=== PATIENT | female | born 1990 ===

== ENCOUNTER → 2020-01-25 12:52 | Outpatient (ROUT) | payer OTHER, SELFPAY | PROVIDERS: Visit Provider Nurse Practitioner Obstetrics & Gynecology | DX: Z36.85 Encounter for antenatal screening for Streptococcus B (principal) | CPT/HCPCS: 87081 ==

== ENCOUNTER 2020-02-18 07:46 | Inpatient (IN) | payer OTHER, SELFPAY ==
--- NOTE | 2020-02-18 07:53 | P.HPOB_ITS ---
OB HPI Date/Time Date of admission: 02/18/20 Date Patient Seen: 02/18/20 Time Patient Seen: 07:50 History of Present Condition Chief complaint: Observation of : 1 Para: 0 Estimated Date of Delivery: 02/25/20 Estimated Gestational Age (weeks): 39 Narrative: Claudette Mccoy is a 30 year old female @ 39 wks by 10 wk US who presents for elective IOL. 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 Anxiety has worsened closer to term along w/ worsening pandemic. Uncomplicated PN care. Received flu vaccine, Tdap vaccine and Rhogam appropriately timed in . Burger balloon placed in clinic 02/17/20 @ 1730, came out at 2300. Lots of FM. Small spotting. No LOF. and director of sustainability programs present and supportive. Planning IV narcotics and then epidural. Indications Indication for induction OB: maternal distance History of Present care: good care Dating criteria: based on 1st trimester US only Ultrasounds: normal 1st trimester US and normal mid trimester US Obstetrical complications: none Medical complications: psychiatric Narrative: Chronic anxiety, stable on sertraline, buspirone and clonazipam Preadmission Labs Blood type: 0 (-) negative -: Antibody screen: negative, GBS status: negative, HBsAG: negative, HIV: negative and RPR/VDLR: negative -: Chlamydia screen: not detected and Gonorrhea screen: not detected -: Rubella: immune HCAB: negative PAP: Normal Cell-free DNA: negative, female 3 hr GTT: 1 hr (169) and 2 hr (116) Fasting blood glucose: 88 Narrative: MsAFP-negative Evaluation Evaluation Baseline heart rate: 130 Variability: Moderate (11-25) monitor accelerations: Present monitor decelerations: Absent Uterine Contraction Intensity: Mild Category of Tracing: I PFSH Medical History (Updated 02/18/20 @ 08:09 by Stefania Nowak CNM) Depression (Acute) Endometriosis determined by laparoscopy (Acute) Family History (Updated 02/18/20 @ 08:09 by Stefania Nowak CNM) Father Hypertension Diabetes mellitus Depression Thyroid disorder Social History (Updated 02/18/20 @ 08:10 by Stefania Nowak CNM) marital status: household members: spouse lives independently: Yes pets and animals: Yes education level: college occupational status: employed Smoking Status: Never smoker alcohol intake: former substance use type: does not use Review of Systems Review of Systems ROS: Yes All systems reviewed with the patient and are negative except as otherwise documented Exam Vital Signs (past 8 hours): BP 115/77, HR105, T36.7C Temporal Resp Effort & Inspection: normal respiratory effort Auscultation: clear to auscultation bilaterally Cardio Rate: regular rate Rhythm: regular rhythm Heart Sounds: S1 normal and S2 normal Manual OB Exam: dilated 4, effaced 75%, station -2 and other (soft, posterior) Presentation: vertex Estimated Weight (lbs): 7 Objective Labs Result Diagrams: 02/18/20 08:00 Assessment and Plan Assessment and Plan Assessment and Plan narrative: Admit, routine orders w/ CBC, T&S, then pitocin. Labor support, PRN. notified of patient status and plan of care. Reassess in 4-6 hurs or sooner, PRN.
[2020-02-18 08:15] LABS: Add Manual Diff / Slide Review NO; Basophils Absolute Auto 100 /uL (0-100); Basophils Percent Auto 0.4 % (0-2); Eosinophils Absolute Auto 100 /uL (0-450); Eosinophils Percent Auto 0.5 % (2-4); Hematocrit 35.3 % (36-46); Hemoglobin 11.9 g/dL (12.0-16.0); Lymphocytes Absolute Auto 1700 /uL (1100-4500); Mean Corpuscular HGB Conc 33.7 % (30-36); Mean Corpuscular Hemoglobin 31.4 PG (26-34); Mean Corpuscular Volume 92.9 fL (80-100); Monocytes Absolute Auto 1000 /uL (0-900); Monocytes Percent Auto 6.2 % (3-14); Neutrophils Absolute Auto 12600 /uL (1500-7000); Neutrophils Percent Auto 81.9 % (50-75); Platelet Count 199 X10^3/uL (150-400); Red Cell Distribution Width 15.3 % (11.6-14.8); White Blood Cell Count 15.4 X10^3/uL (4.5-11.0)
[2020-02-18] MEDS: OXYTOCIN PREMIX 30 UNIT/500 ML PLAST..BAG IV (08:58)
[2020-02-18] MEDS: LACTATED RINGERS 1,000 ML 100 ML IV (08:58)
--- NOTE | 2020-02-18 13:14 | PM.OBPNLAB ---
Date/Time Date Patient Seen: 02/18/20 Time Patient Seen: 01:30 Pain Control Pain control: tolerating well Comments: Feeling mild to moderate, regular contractions. Not yet breathing through them. Thinks her water broke @ 1030 and has continued to leak scant amounts of clear fluid. VS: BP 103/58, HR97, T36.7C Temporal Pelvic Exam Dilation (cm): 4 Effacement (%): 75 station: -2 Amniotic membrane status: Leaking Comments: CE deferred/assumed same as on admission, as patient is not yet uncomfortable. Contractions Contractions on admission: none Monitor mode: External Pitocin rate (mU/min): 8 Contraction frequency (min): 2 Contraction duration (min): 1 Contraction pattern: Regular Contraction intensity: Mild Status status: Category l Heart Rate Baseline: 145 Monitor Accelerations: Present Monitor Decelerations: Absent Monitor Variability: Moderate Assessment and Plan Assessment: induction ongoing Plan: continuous present management Comments: Reassess in 4-6 hours or sooner, PRN. Labor support PRN. Recommend tub, then IV narcotic, then epidural, if desired. Encouraged every 20-30 minute position changes. Repeat CE after 2 hours of strong contractions.
--- NOTE | 2020-02-18 17:50 | PM.OBPNLAB ---
Date/Time Date Patient Seen: 02/18/20 Time Patient Seen: 16:45 Pain Control Pain control: tolerating well Comments: occasionally breathing through contractions, still woodrow to walk and talk through them. Has continued to leak scant amounts of clear fluid. VS: BP 110/69, HR95, T35.6C Temporal, SpO2-98%, poor electronic evaluation of MHR w/ SpO2 and Blanca. Pelvic Exam Dilation (cm): 4 Effacement (%): 75 station: -2 Amniotic membrane status: Leaking Comments: posterior cervix, ROP position. Contractions Contractions on admission: none Monitor mode: External Pitocin rate (mU/min): 13 Contraction frequency (min): 2 Contraction duration (min): 60 Contraction pattern: Regular Contraction intensity: Moderate Status status: Category l Heart Rate Baseline: 135 Monitor Accelerations: Present Monitor Decelerations: Variable Monitor Variability: Moderate Comments: poor continuity of tracing. RN switching between Blanca and traditional EFM. Assessment and Plan Assessment: induction ongoing Plan: continuous present management Comments: Recommend Mile's circuit. Labor support PRN. Reassess in 4 hours or sooner, PRN. Will consider FSE if FHR remains difficult to trace, but FHR currently reassuring overall.
[2020-02-18 19:25] VITALS: BP 110/69
[2020-02-18] MEDS: fentaNYL 100 MCG/2 ML INJ IV ×2 (20:44→23:06)
[2020-02-18] MEDS: clonazePAM 0.5 MG TABLET PO (20:59)
[2020-02-18] MEDS: ONDANSETRON 4 MG/2 ML INJ IV (23:41)
--- NOTE | 2020-02-19 00:41 | PM.OBPNLAB ---
Date/Time Date Patient Seen: 02/19/20 Time Patient Seen: 00:30 Pain Control Pain control: epidural Comments: Pt felt a pop and a large gush of fluid at 2328 with immediate increase in intensity of contractions. Pt received IV Fentanyl, then epidural. Now comfortable after epidural placement. VS: 105/72, HR100, T36.3C Temporal Pelvic Exam Dilation (cm): 5 Effacement (%): 90 station: -2 Amniotic membrane status: Leaking Comments: Clear Contractions Date/Time contractions began: Tachysystole immediately after SROM w/ pitocin @ 14mu/min. Pitocin was decreased to 10mu/min, then turned off. After epidural was placed, pitocin was restarted at 3mu/min. Contractions on admission: none Monitor mode: External Pitocin rate (mU/min): 3 Contraction frequency (min): 2 Contraction pattern: Regular Contraction intensity: Moderate Status status: Category l Heart Rate Baseline: 135 Monitor Accelerations: Present Monitor Decelerations: Absent Monitor Variability: Moderate Assessment and Plan Assessment: active labor and induction ongoing Plan: continuous present management Comments: Continue pitocin titration to adequate contraction pattern. Reassess in 4 hours or sooner, PRN.
[2020-02-19] MEDS: CALCIUM CARBONATE 500 MG TAB 1000 MG PO (00:44)
[2020-02-19] MEDS: CITRIC ACID/SODIUM CITRATE 15 ML SOLUTION 30 ML PO (05:08)
--- NOTE | 2020-02-19 06:16 | PM.OBPRVD ---
 Events: Labor Induction (elective) and Meconium Stained Fluid Labor & Delivery Delivery date: 02/19/20 Intrapartal events: None Cervical ripening method: per Burger bulb protocol (done in office 02/17/20) Induction method: per pitocin protocol Delivery augmentation: pitocin Delivery monitor: external FHT and external uterine Route of delivery: L&D Laceration Description: Perineal - 1st Degree and Vaginal - 2nd Degree Delivery repair: chromic Estimated blood loss (mL): 160 Anesthesia type: Epidural Narrative: Pt was examined @ 0430 and found to be C/C/+1. Meconium stained amniotic fluid was noted and a second RN was called to standby for NRP at a moderate crown. Maternal pushing w/ coaching and encouragement led to steady descent of vertex/ NSVB of a viable baby girl in direct OA position w/ no NC and easy delivery of the shoulders. [place] was lifted to maternal abdomen by FOB and CNM. Remianing 30 units of pitocin in 500mL LR was started at 300mL/hr for AMSTL. After cessation of pulsation, the cord was double clamped by CNM and cut by patient. Gentle cord traction led to spontaneous, Schultze deliveyr of an apparently intact placenta, membranes and 3VC. Fundus immediately firm and bleeding minimal. Inspection revealed a 1st degree perineal laceration extending to a left sulcus laceration. Both repaired w/ 3.0 Chromic in the usual fashion, under adequate epidural anesthesia. Patient's clitoral piercing was removed prior to and replaced after the repair was complete. QBL 160mL. Both mother and baby stable and skin to skin as I left the room. [place] Baby 1: Infant gender: Female Presentation: vertex Placenta delivery description: Spontaneous cord vessel description: 3 Vessels score (1 min): 7 score (5 min): 8 Plan for aftercare: Routine PP orders. Anticipate d/c to home in 24-36 hours.
[2020-02-19] MEDS: KETOROLAC 30 MG/ML VIAL IV (06:42)
[2020-02-19] MEDS: SERTRALINE 50 MG TABLET 150 MG PO (08:21)
[2020-02-19] MEDS: PRENATAL VIT,CALC/IRON/FOLIC 1 TABLET 1 TAB PO (08:21)
[2020-02-19] MEDS: DOCUSATE 100 MG CAPSULE PO ×2 (08:24→19:42)
[2020-02-19] MEDS: DERMOPLAST SPRAY 20% 60 ML 1 SPRAY TOP (10:15)
[2020-02-19] MEDS: ACETAMINOPHEN 325 MG TABLET 650 MG PO ×3 (10:15→22:38)
[2020-02-19] MEDS: IBUPROFEN 600 MG TABLET PO ×2 (14:13→19:41)
[2020-02-19] MEDS: clonazePAM 0.5 MG TABLET PO (22:38)
[2020-02-20] MEDS: IBUPROFEN 600 MG TABLET PO ×2 (02:37→08:48)
[2020-02-20] MEDS: ACETAMINOPHEN 325 MG TABLET 650 MG PO (06:56)
--- NOTE | 2020-02-20 07:56 | P.DS_ITS ---
Discharge Providers Provider Date of admission: 02/18/20 07:46 Discharge Date: 02/20/20 Consults: 02/20/20 06:15 Consult to Credit Card Analyst Routine Comment: Discharge provider: Stefania Nowak CNM Summary Discharge Diagnosis (1) Second degree perineal laceration during delivery: Status: Acute Time Spent with Patient Time attestation: Total time spent providing and/or coordinating discharge ser vices: Objective Labs Result Diagrams: 02/18/20 08:00 Exam Vital Signs (past 8 hours): BP 116/72, HR92, RR16, T98.2F Temporal External Female Exam: external swelling Other: Fundus firm @ u-1, lochia-rubra, light, no clots Perineum well approximated Discharge Plan Discharge Plan Patient Disposition: Home Discharge orders & Medications Prescriptions: New oxycodone 5 mg Tablet 5 mg PO Q4HR PRN (Reason: Pain, Moderate (4-6)) 4 Days Qty: 6 RF: 0 ibuprofen 600 mg Tablet 600 mg PO Q6HR PRN (Reason: Pain, Mild (1-3)) 14 Days Qty: 60 RF: 2 acetaminophen 325 mg Tablet 650 mg PO Q6HR PRN (Reason: Pain, Mild (1-3)) 14 Days Qty: 60 RF: 2 Continued clonazepam 0.5 mg tablet 0.5 mg PO DAILY RF: 0 sertraline 100 mg tablet 150 mg PO DAILY RF: 0 cetirizine 10 mg Tablet 10 mg PO DAILY RF: 0 Follow up/Referrals: Stefania Nowak CNM [Advanced Vending Machine Technician] - (Follow up in 2 weeks and 6 week , as scheduled. You have appointment email confirmations.) Diet/Activity/Treatments Diet: Diet as Tolerated and Regular Activity: pelvic rest x 6 weeks Skin/Wound/Dressing Care Report to your healthcare provider any signs of infection, such as:: chills, fever, increased pain and unusual redness Visit Report/Discharge Packet Instructions: DI for Depression
[2020-02-20] MEDS: PRENATAL VIT,CALC/IRON/FOLIC 1 TABLET 1 TAB PO (08:46)
[2020-02-20] MEDS: DOCUSATE 100 MG CAPSULE PO (08:46)
[2020-02-20] MEDS: SERTRALINE 50 MG TABLET 150 MG PO (08:47)
[2020-02-20 09:29] VITALS: BP 105/66; PULSE 92; RESP 16; TEMP 37.1
[2020-02-20] MEDS: MEASLES,MUMPS,RUBELLA VACC/PF 0.5 ML VIAL SUBCUT (11:35)
== END 2020-02-20 12:35 | disposition home or self-care (01) | DRG 807 ==
PROVIDERS: Admitting Provider Nurse Practitioner Obstetrics & Gynecology; Referring Provider Nurse Practitioner Obstetrics & Gynecology; Visit Provider Nurse Practitioner Obstetrics & Gynecology
DX: O70.0 First degree perineal laceration during delivery (principal); Z37.0 Single live birth; Z3A.39 39 weeks gestation of pregnancy; O70.1 Second degree perineal laceration during delivery; O77.0 Labor and delivery complicated by meconium in amniotic fluid
CPT/HCPCS: 01967; 36415; 59050; 84112; 85025; 86850; 86870; 86900; 86901; G0379; J1885; J2405; J2590; J3010